=== PATIENT | male | born 1955 | race Caucasian/White ===

== ENCOUNTER 2016-08-02 06:46 | Inpatient (IN) | payer MEDICARE ==
[~2016-08-02] VITALS: Ht 172.7 cm; Wt 95.8 kg
--- NOTE | ~2016-08-02 | DS ---
PATIENT'S NAME: LIUDMILA PARSON [facility] AGE: 60 Y [address] ROOM: [address] [place], [place] [address] LOCATION: GPCU ADMIT DATE: 08/02/2016 Discharge Summary DISCHARGE DATE: 08/05/2016 FAMILY PHYSICIAN: Jj Pandey PA-C ATTENDING PHYSICIAN: Braeden Edwards PRIMARY DISCHARGE DIAGNOSIS: Persistent atrial fibrillation. SECONDARY DIAGNOSES: 1. Chronic systolic congestive heart failure. 2. Long-term anticoagulation with Eliquis. 3. Hypertension. 4. Hypokalemia, corrected. 5. Hypomagnesemia, corrected. 6. Ejection fraction 35%. PROCEDURES: 1. Transesophageal echocardiogram. 2. Direct current cardioversion through an automated implanted cardiac defibrillator. HOSPITAL COURSE: This is a 60-year-old male who was originally seen in [facility] with Dr. Edwards and was found only be 78% pacing through his left ventricle due to his continuous atrial fibrillation. Plan at that time was to proceed with an admission of the patient following a AYSE and direct current cardioversion as well as initiation of Tikosyn. The patient underwent a successful AYSE followed by a direct current cardioversion with 41 joules from his automatic implanted cardiac defibrillator. Please see full dictated report for details. Postprocedure, the patient was transferred to progressive care unit for continued monitoring of EKG and vital signs postprocedure. He was started on Tikosyn 250 mcg p.o. every 12 hours as well as Eliquis 5 mg p.o. twice daily. On 08/03/2016, he was noted to be hypokalemic and was replaced with oral potassium chloride. QTc measurement that morning was 455 msec and he showed decreased premature atrial contractions on his telemetry. On 08/04/2016, the QTc was 501 and his Tikosyn was decreased to 125 mcg p.o. twice daily. Once again, his hypokalemia was replaced with oral KCl and he was started on Aldactone. On 08/05/2016, the patient's QTc measured 482 and had a magnesium level of 1.3, which was replaced with 2 g of IV magnesium and post infusion it was at a level of 2.0. At that time, the patient was found to be in stable condition to be discharged to home. DIAGNOSTICS: Laboratory evaluation during the hospitalization showed an initial potassium level of 3.8, which was at its lowest point of 2.9, and upon discharge, it was 3.4. BUN and creatinine upon admission and discharge were PATIENT'S NAME: LIUDMILA PARSON [facility] AGE: 60 Y [address] ROOM: [place] [address] LOCATION: GPCU ADMIT DATE: 08/02/2016 Discharge Summary DISCHARGE DATE: 08/05/2016 FAMILY PHYSICIAN: Jj Pandey PA-C ATTENDING PHYSICIAN: Braeden Edwards 29 and 1.1 and then 24 and 0.9 respectively. The patient's GFR remained greater than 60 throughout his hospitalization. Full report of his transesophageal echocardiogram, procedure and findings, as well as his direct current cardioversion is available, and the procedure was performed on 08/02/2016 for full review. The patient underwent daily EKG evaluations for Tikosyn safety monitoring and all remained stable post cardioversion with demand pacing noted. DISCHARGE ORDERS: The patient is discharged to home with a diabetic diet and no restrictions to his activity. He is to follow up with his primary care provider, Jj Pandey, in 1 week with a BMP and a magnesium laboratory evaluation. He is then to follow up with Dr. Edwards in 2 weeks. Main focus of his followup with the primary care provider is for evaluation of reasons for hypomagnesemia. DISCHARGE MEDICATIONS: 1. Eliquis 5 mg p.o. twice daily. 2. Coreg 25 mg p.o. twice daily. 3. Tikosyn 125 mcg p.o. twice daily. 4. Lasix 80 mg p.o. daily as needed for shortness of breath. 5. Humalog subcu on a moderate sliding scale before meals and at bedtime. 6. NovoLog 18 units subcu twice daily. 7. Potassium chloride 40 mEq p.o. twice daily. 8. Aldactone 25 mg p.o. daily. 9. Tylenol 650 mg p.o. every 6 hours as needed for pain. DISPOSITION: The patient is discharged to home in stable condition with his . He is given his discharge instructions including diet restrictions as well as followup appointments. He is also given his new medication instructions as well as new prescriptions. AUTUMN CHINCHILLA APRN FOR MD ROSE MARY LARIOS/modl /[id number] d: 08/12/16 0256 t: 08/12/16 0914, DISCHARGE SUMMARY
--- NOTE | ~2016-08-02 | OR ---
PATIENT'S NAME: LIUDMILA PARSON [facility] AGE: 60 Y [address] ROOM: [place] [address] LOCATION: GPCU ADMIT DATE: 08/02/2016 OR/Procedure Report DISCHARGE DATE: FAMILY PHYSICIAN: Jj Pandey PA-C ATTENDING PHYSICIAN: Braeden Edwards SURGEON: Braeden Edwards MD YARD SWITCHER: DATE OF PROCEDURE: 08/02/2016 PROCEDURE PERFORMED: Synchronized cardioversion. INDICATION: The patient has chronic systolic heart failure. He presented to the office complaining of increased dyspnea. He was found to be in atrial fibrillation with rapid ventricular response. His device interrogation showed that the rhythm change had occurred about a month earlier. The patient was admitted with a plan to correct the rhythm because of his worsening heart failure symptoms. Transesophageal echocardiography showed that there were no thrombi in the left atrial appendage or anywhere else in the atria. There was some moderate spontaneous echo in the left atrium. The patient was sedated with propofol and then using his indwelling cardioverter-defibrillator, I delivered a 41-joule synchronized shock that converted his rhythm to atrioventricular pacing with frequent premature atrial contractions. CONCLUSION: Successful cardioversion from atrial fibrillation to sinus rhythm and atrioventricular pacing. The patient will be admitted to introduce dofetilide in an attempt to prevent recurrence of his atrial fibrillation. Thank you for allowing me to participate in the care of your patient. BRAEDEN EDWARDS MD PE/modl /[id number] d: 08/02/16 1143 t: 08/04/16 1551, OPERATIVE SUMMARY
--- NOTE | ~2016-08-02 | ECHO ---
Transesophageal Echocardiography Report (AYSE) Demographics Patient Name LIUDMILA PARSON Date of Study 08/02/2016 Patient Number [id number] Visit Number [id number] Date of 1955 Room Number G6327 Gender Male Number Age 60 year(s) Referring Jj Tiwarilanny Flooring Grader Kelby Danielson Physician Mike Morocho [facility] MD Physician Interpreting Jerry Child Protective Services Specialist Physician Bailee Brandt MD Supervising Ordering Jerry SELLERS/MLP Physician Bailee Brandt MD Nurse Stress Grants Director Conclusions Summary Estimated EF: 35 %. The left atrium is mildly dilated. No left atrial masses including the appendage. Moderate spontaneous echo contrast (''smoke'') in the L atrium. Proceed with cardioversion. Procedure Type of Study AYSE procedure:2D Echocardiogram, Doppler , Color Doppler. Procedure Date Date: 08/02/2016 Start: 10:06 AM Study Location: Inpatient Portable Technical Quality: Good visualization Indications:Atrial fibrillation. Appropriate Use Criteria: 9 Patient Status: Routine HR: 84 bpm AYSE Performed By: the attending and the aluminum siding applicator Type of Anesthesia: General anesthesia Findings Left Ventricle Estimated EF: 35 %. Right Ventricle Mildly dilated right ventricle. Mildly reduced right ventricular function. Left Atrium The left atrium is mildly dilated. No left atrial masses including the appendage. Moderate spontaneous echo contrast (''smoke'') in the L atrium. Right Atrium The right atrium is mildly dilated. Interatrial septum bulges to the left indicating elevated right atrial pressure. Mitral Valve Mild mitral regurgitation. Aortic Valve Normal trileaflet aortic valve. Tricuspid Valve Mild tricuspid regurgitation . Pulmonic Valve Pulmonary valve appears normal. Pericardial Effusion No pericardial effusion. Signature dtt: Braeden Edwards dtd: 08/02/16 1006 Physician Self Edit
[~2016-08-02 06:46] MED LIST: ASPIRIN LO-DOSE81 MG PO; ASPIRIN325 MG PO; BETAPACE80 MG PO; COREG12.5 MG PO; COREG25 MG PO; HUMALOG100 UNIT/1 SUB-Q; JENTADUETO 2.51 EACH PO; K-TAB ER20 MEQ PO; LANOXIN250 MCG PO; LASIX80 M1 PO; NORCO 5-325 MG1 TAB PO; NOVOLIN N100 UNIT/1 SUB-Q; PRINIVIL (ZESTRI5 MG PO; TYLENOL EXTRA500 MG PO; [UNRECOGNIZED DRUG - OTHER] OPHTH
--- NOTE | 2016-08-02 08:21 | NUR ---
Diabetes Consult; Received a phone call from pharmacy regarding the patient's insulin regimen. The patient saw ROGER Howe for two visits in 2014. This CDE worked with the patient during his last admission to the hospital in Jan 2016. Prior to discharge the patient was given a humalog voucher and started on Humalog Moderate Correction. In addition, he was instructed to purchase NPH at [facility] and begin dosing 18 units twice daily.
[2016-08-02 08:44] LABS: HEMATOCRIT 47.1 % (37.0-53.0); HEMOGLOBIN 16.4 g/dL (12.0-17.0); MCHC 34.8 gm/dL (32.0-36.5); MPV 12.7 fl (9.4-12.4); PLATELET COUNT 178 K/uL (150-450); RBC 5.12 M/uL (4.00-6.00); RDW-CV 12.7 % (11.9-14.6); WBC 13.5 K/uL (4.0-11.0)
[2016-08-02 08:52] LABS: ALBUMIN 3.5 gm/dL (3.5-5.0); ALK PHOS 90 IU/L (33-138); ALT 81 IU/L (12-78); ANION GAP 14.8 (10.0-19.0); AST 58 IU/L (10-40); BLOOD UREA NITROGEN 29 mg/dL (6-24); CALCIUM 8.7 mg/dL (8.5-10.5); CHLORIDE 102 mMol/L (96-110); CO2 26 mMol/L (22-32); CPK 162 IU/L (35-332); CREATININE 1.1 mg/dL (0.6-1.3); ESTIMATED GFR (MDRD EQUATION) > 60; MAGNESIUM 1.4 mg/dL (1.3-2.6); POTASSIUM 3.8 mMol/L (3.7-5.1); SODIUM 139 mMol/L (135-145); TOTAL BILIRUBIN 1.5 mg/dL (0.0-1.5); TOTAL PROTEIN 7.3 g/dL (6.0-8.4)
--- NOTE | 2016-08-02 08:56 | NUR ---
Admission Note: Patient states that he had an appointment with Dr. Edwards yesterday in the clinic who then wanted to admit him, but patient refused to be admitted yesterday and came in this A.M. Patient being admitted for acute CHF exacerbation, and Dr. Edwards also plans to due a AYSE with cardioversion this A.M. Patient arrived to PCU at 0735 with VSS: HR 122 (paced rhythm with underlying atrial fibrillation), BP 98/66, RR 16, O2 saturation 94% on room air, and temp 98.1 F. Patient denies pain or shortness of breath. Bowel sounds hypoactive in the right upper and lower quadrants, and patient states he has not had a bowel movement the last couple days and his stomach has been upset. Patient also states he is getting over a cold, and he thinks his stomach is upset due to the nasal drainage. Reports some neuropathy in his bilateral lower legs due to an old back injury. Patient is diabetic, but is inconsistent with his medications and checking blood sugars. Plan for AYSE and cardioversion this A.M. Starting on IV Lasix and Lovenox. Shani SANZ 08/02/16
[2016-08-02 09:56] LABS: BANDED NEUTROPHIL # 0.1 K/uL (0.0-0.1); BANDED NEUTROPHILS % 1 %; LYMPHOCYTE # 5.4 K/uL (0.8-4.0); LYMPHOCYTE % 40 %; MONOCYTE # 0.9 K/uL (0.0-1.0); SEGMENTED NEUTROPHIL # 6.9 K/uL (1.4-9.0); SEGMENTED NEUTROPHIL % 51 %
--- NOTE | 2016-08-02 10:25 | NUR ---
Diabetes consult: Patient is currently off the nursing unit. Will continue to follow and assess educational needs prior to discharge.
--- NOTE | 2016-08-02 11:30 | NUR ---
REPORT CALLED TO [facility] ON PCU
--- NOTE | 2016-08-02 13:04 | NUR ---
Introduced self and role of care management to patient. He lives outside [place] with his and family. He states that he is able to do all his ALD's independently. He states that his can assist if needed. He plans on returning home on discharge. He denies any needs at this time. Will continue to follow.
--- NOTE | 2016-08-02 17:13 | NUR ---
Significant Event: Patient was admitted this morning for acute CHF. A/O x 3. VSS on RA. Had AYSE with cardioversion this A.M. Has remained in paced SR for most of the day but will occasionally have bursts of afib. Asymptomatic. Denies any pain or discomfort. Good UOP with IV Lasix. ACHS accu checks. Follow up: Continue as per plan of care. Monitor heart rhythm. EKG the next 2 mornings.
--- NOTE | 2016-08-03 04:28 | NUR ---
Significant Event:ALERT & ORIENTED. DENIES PAIN. PACED RHYTHM,UNDERLYING A-FIB. TIKOSYN LOAD, STARTED ELIQUIS. UP AD NURA.PT AWAKE MAJORITY OF SHIFT. SISTER AT BEDSIDE. Follow up:CONT TO MONITOR
[2016-08-03 04:42] LABS: ANION GAP 10.3 (10.0-19.0); BLOOD UREA NITROGEN 34 mg/dL (6-24); CALCIUM 8.6 mg/dL (8.5-10.5); CHLORIDE 100 mMol/L (96-110); CO2 32 mMol/L (22-32); CPK 154 IU/L (35-332); ESTIMATED GFR (MDRD EQUATION) > 60; POTASSIUM 3.3 mMol/L (3.7-5.1); SODIUM 139 mMol/L (135-145)
--- NOTE | 2016-08-03 13:34 | NUR ---
Received a call from Kathryn Morales RN with diabetic Ed. She has concerns that patient is not able to afford his medications. I did touch base with patient. He states that he does not have any prescription plans with his Medicare. He "can't afford it". I have reviewed all his medication and they are all generic and most of them are on the $4 list. He states that he gets his med from [facility] and they work with him on the cost. He denies any needs.
--- NOTE | 2016-08-03 15:36 | NUR ---
Significant event: A&Ox3. HR 80-90's, irregular. Afebrile. SBP 90-120's. Up ad-quyen. Denies pain. Follow Up: Continue current POC
--- NOTE | 2016-08-03 16:07 | NUR ---
Diabetes Center note; Patient is seen twice today, first we discuss the importance of obtaining better control of his blood sugars with recent A1C of 12 %. Patient states he is tired of poking himself and states that he can't afford supplies. New meter and strips are provided to patient. Discussed at length the risks of uncontrolled blood sugars, heart, eyes, kidneys and nerves. Notified Care management of concerns with new "blood thinner" also that he is going to be taking, may seek assistance from [facility] for medication assistance program. Message for manager spa to see him today, to assist in guiding him through the process if he qualifies. Patient completed the Diabetes Survival Skills checklist and states understanding what he needs to do, but admits it is difficult to always follow guidelines provided. Encouraged patient to seek assistance from an Internal Medical Doctor, states he is satisfied with [facility] at the [facility].
[2016-08-04 04:17] LABS: ANION GAP 12.9 (10.0-19.0); BLOOD UREA NITROGEN 26 mg/dL (6-24); CALCIUM 8.7 mg/dL (8.5-10.5); CHLORIDE 102 mMol/L (96-110); CO2 31 mMol/L (22-32); CREATININE 0.8 mg/dL (0.6-1.3); ESTIMATED GFR (MDRD EQUATION) > 60; SODIUM 143 mMol/L (135-145)
[2016-08-04 04:18] LABS: POTASSIUM 2.9 mMol/L (3.7-5.1)
--- NOTE | 2016-08-04 04:20 | NUR ---
Significant Event: VSS. PT UP AD NURA. IRREGULAR RHYTHM PER TELE. PT DENIES PAIN OR SOB. PT EAGER TO RETURM HOME. Follow up:CONT WITH PLAN OF CARE
--- NOTE | 2016-08-04 12:10 | NUR ---
Social visit with patient today. We again discussed his medication issues. I have reviewed his med list again and he is now on Eliquis. I did call and speak with Dena at [facility] and she does have a program for Eliquis. I had patient complete the [facility] application form. I also gave him a 30 day free Eliquis card. I also gave him a finalcial assistance for to complete and return. He denies any other needs at this time. Will continue to follow.
--- NOTE | 2016-08-04 13:29 | NUR ---
Patient known to me from prior home monitoring through [place]. Explained purpose of heart healthy education and care transitions. Calendar given, information reviewed, verbalized understanding. Pt reports knowing what he should eat and do isn't the problem, it's compliance.
[2016-08-04 14:21] LABS: ANION GAP 11.4 (10.0-19.0); BLOOD UREA NITROGEN 22 mg/dL (6-24); CALCIUM 8.9 mg/dL (8.5-10.5); CHLORIDE 102 mMol/L (96-110); CO2 33 mMol/L (22-32); CREATININE 0.9 mg/dL (0.6-1.3); ESTIMATED GFR (MDRD EQUATION) > 60; POTASSIUM 3.4 mMol/L (3.7-5.1); SODIUM 143 mMol/L (135-145)
--- NOTE | 2016-08-04 14:21 | NUR ---
Faxed [employer] form, demographics and current MAR to Dena at [facility]. Will fax discharge meds when discharged to home.
--- NOTE | 2016-08-04 16:34 | NUR ---
Significant event: A&Ox3. HR 70-80's. Afebrile. On RA. SBP 110-140's. Denies pain. Educated patient on fluid restriction. Attempts to leave floor at times. Patient had low K+ level this AM 2.9, given 60 MEQ KCL. Rechecked K+ at 1400 it is 3.4, will have another 40 MEQ KCL tonight. Tikosyn dose was also decreased for QTc of 501. Follow Up: Probable discharge in AM.
[2016-08-05 04:19] LABS: ANION GAP 11.4 (10.0-19.0); BLOOD UREA NITROGEN 24 mg/dL (6-24); CALCIUM 8.7 mg/dL (8.5-10.5); CHLORIDE 105 mMol/L (96-110); CO2 30 mMol/L (22-32); CREATININE 0.9 mg/dL (0.6-1.3); ESTIMATED GFR (MDRD EQUATION) > 60; POTASSIUM 3.4 mMol/L (3.7-5.1); SODIUM 143 mMol/L (135-145)
--- NOTE | 2016-08-05 04:19 | NUR ---
Significant Event: PATIENT IS A/O X3. VSS. HR 70-80'S IN PACED RHYTHM. SBP 100-110'S. AFEBRILE. 02 SATS IN LOW 90'S ON RA. NO C/O PAIN. LUNGS CLEAR/DIM THROUGHOUT. PATIENT UP AD NURA IN ROOM. BOWELS ACTIVE. VOIDS PER RESTROOM. SCATTERED SCRATCHES/ECCHYMOSIS. IV TO RIGHT POSTERIOR FOREARM SL. ON 1500ML FLUID RESTRICTION. SEEMS TO BE VERY NON-COMPLIANT WITH IT. PATIENT STATES HE'S ONLY HAD 2 CUPS OF WATER BUT APPEARS TO HAVE MORE. ON ACHS ACCUCHECKS. Follow up: AM LABS. HOME TODAY?
[2016-08-05] MEDS ORDERED: ELIQUIS5 MG PO (08:37)
[2016-08-05] MEDS ORDERED: TIKOSYN125 MCG PO (08:37)
[2016-08-05 10:44] LABS: MAGNESIUM 1.3 mg/dL (1.3-2.6); POTASSIUM 3.8 mMol/L (3.7-5.1)
--- NOTE | 2016-08-05 11:41 | NUR ---
Patient discharging home today, faxed discharge medication orders to Dena [facility] to complete referral for their medication assistance program.
--- NOTE | 2016-08-05 11:46 | NUR ---
Diabetes consult: Patient with fasting blood sugar of 92 this morning. NPH of 18 was held this morning. In reviewing chart, the patient receives NPH at 18 units at 0700 and 1700. Will trend blood sugars and evaluate if dose change is needed.
--- NOTE | 2016-08-05 16:32 | NUR ---
Discharged patient to home, patient taken to private auto via wheelchair, accompained by ASSOCIATE PRODUCT INTEGRITY ENGINEER. Heart failure teacher done. New medication education. Medication compliance education done by RNHarvey APRN, and Dr. Fields. Discharge instructions given, as well as follow up appointments and importance of keeping follow-up appointments. Patient remained passive during teaching, but verbalized understanding.
== END 2016-08-05 15:15 | disposition disaster alternative care site (69) | DRG 309 ==
LOC: GPCU 06:46 → GOPP 08:00 → EDSTATUS 08:00 → GPCU 08-05 15:15
PROVIDERS: Internal Medicine Interventional Cardiology; ADMIT Internal Medicine Cardiovascular Disease
PROC: 5A2204Z Restoration of Cardiac Rhythm, Single (ICD-10-PCS; principal; 2016-08-02)
PROC: B246ZZ4 Ultrasonography of Right and Left Heart, Transesophageal (ICD-10-PCS; 2016-08-02)
DX: I48.1 Persistent atrial fibrillation (principal); I50.22 Chronic systolic (congestive) heart failure; I11.0 Hypertensive heart disease with heart failure; E78.5 Hyperlipidemia, unspecified; F17.290 Nicotine dependence, other tobacco product, uncomplicated; Z79.01 Long term (current) use of anticoagulants; E87.6 Hypokalemia; E83.42 Hypomagnesemia; Z95.810 Presence of automatic (implantable) cardiac defibrillator; E11.9 Type 2 diabetes mellitus without complications; Z79.4 Long term (current) use of insulin
CPT/HCPCS: J1650; J1940; J3475; J7030; J7050

== ENCOUNTER → 2016-08-08 | Outpatient (CLI) | payer MEDICARE ==
[~2016-08-08] MED LIST changes: +CARDIZEM CD (T120 MG PO; +ELIQUIS5 MG PO; +IBUPROFEN800 MG PO; +JARDIANCE10 MG PO; +MAG-OX-400(241400 MG PO; +TIKOSYN125 MCG PO
[2016-08-08 16:54] LABS: ANION GAP 16.1 (10.0-19.0); BLOOD UREA NITROGEN 28 mg/dL (6-24); CALCIUM 9.5 mg/dL (8.5-10.5); CHLORIDE 108 mMol/L (96-110); CO2 23 mMol/L (22-32); CREATININE 0.9 mg/dL (0.6-1.3); ESTIMATED GFR (MDRD EQUATION) > 60; POTASSIUM 4.1 mMol/L (3.7-5.1); SODIUM 143 mMol/L (135-145)
[2016-08-08 16:59] LABS: MAGNESIUM 1.1 mg/dL (1.3-2.6)
== END | disposition disaster alternative care site (69) ==
LOC: LNHI 16:34
PROVIDERS: Nurse Practitioner
DX: I50.22 Chronic systolic (congestive) heart failure (principal); I48.1 Persistent atrial fibrillation; I42.9 Cardiomyopathy, unspecified

== ENCOUNTER → 2016-08-19 | Outpatient (CLI) | payer MEDICARE ==
[2016-08-19 16:38] LABS: ANION GAP 11.4 (10.0-19.0); BLOOD UREA NITROGEN 19 mg/dL (6-24); CALCIUM 8.5 mg/dL (8.5-10.5); CHLORIDE 102 mMol/L (96-110); CO2 29 mMol/L (22-32); CREATININE 0.8 mg/dL (0.6-1.3); ESTIMATED GFR (MDRD EQUATION) > 60; MAGNESIUM 1.5 mg/dL (1.3-2.6); POTASSIUM 3.4 mMol/L (3.7-5.1); SODIUM 139 mMol/L (135-145)
== END | disposition disaster alternative care site (69) ==
LOC: LNHI 16:15
PROVIDERS: Internal Medicine Cardiovascular Disease
DX: I48.1 Persistent atrial fibrillation (principal)

== ENCOUNTER 2016-09-11 21:17 | Inpatient (IN) | payer MEDICARE ==
[~2016-09-11] VITALS: Ht 172.7 cm; Wt 99.7 kg
--- NOTE | ~2016-09-11 | ER ---
PATIENT'S NAME: LIUDMILA PARSON [facility] AGE: 60 Y [address] ROOM: [place] [address] LOCATION: GICU ADMIT DATE: 09/11/2016 ER/Outpatient Report DISCHARGE DATE: FAMILY PHYSICIAN: PHYSICIAN, NO ATTENDING PHYSICIAN: Chanelle Bhatia Time of Arrival: 2117 hours. Time of Evaluation: 2117 hours. IDENTIFICATION: A 60-year-old male. CHIEF COMPLAINT: Defibrillator activation. 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 He is at the [place] playing [employer], drinking a few beers when he noted his AICD discharged x2 while sitting there, so he got nervous and then it fired again an additional 2 times. On arrival here to the emergency room, he is tachycardic. Denies any chest pain. No shortness of breath, but diaphoretic and anxious. PAST MEDICAL HISTORY: ALLERGIES: PENICILLIN. CURRENT MEDICATIONS: He did not bring them with him, but he was recently here in the hospital in July for cardioversion, and he says they have not changed since that time. 1. Furosemide 80 mg daily. 2. KCl 40 mEq b.i.d. 3. Acetaminophen 650 mg q.6 hours p.r.n. 4. Carvedilol 25 mg b.i.d. 5. Insulin Humalog sliding scale before meals and at bedtime. 6. Novolin N 18 units subcu b.i.d. 7. Eliquis 5 mg b.i.d. 8. Tikosyn 125 mcg b.i.d. The patient states that he did not take any of his medications today. 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 ROOM: [address] [address] LOCATION: GICU ADMIT DATE: 09/11/2016 ER/Outpatient Report DISCHARGE DATE: FAMILY PHYSICIAN: PHYSICIAN, NO ATTENDING PHYSICIAN: Chanelle Bhatia hepatitis C; paroxysmal atrial fibrillation; dyslipidemia; and peripheral neuropathy. The patient has a history of atrial fibrillation as well. PRIOR SURGERIES: Back surgery, knee surgery, elbow, thumb, wrist, gallbladder, and tonsillectomy. SOCIAL HISTORY: The patient lives in [place]. He is . Tobacco use: Occasional cigar. He smoked for 20 years. Alcohol use, 6 beers today. Drug use, denies. FAMILY HISTORY: Father secondary to kidney disease and heart disease, on hemodialysis. Mother, history of throat cancer. Brother with history of hepatitis and a sister with a history of asthma. REVIEW OF SYSTEMS: All systems reviewed and negative other than what is noted in the HPI. PHYSICAL EXAMINATION: VITAL SIGNS: Weight 95 kg. Blood pressure 164/120, pulse 178, respirations 22, temperature 97.6, and saturations 96%. GENERAL: A 60-year-old male, somewhat diaphoretic, but otherwise in no acute distress with no pain. HEENT: Head: Normocephalic, atraumatic. Eyes: Pupils equal and reactive to light and accommodation. Extraocular movements intact. Nose: Mucosa pink. No lesions. Mouth: No lesions. Pharynx benign. NECK: Supple. No lymphadenopathy. LUNGS: Clear to auscultation. HEART: Regular, tachycardia. No murmur, rub, or gallop. ABDOMEN: Bowel sounds present. Protuberant. Soft. Nondistended. Nontender. SKIN: Elton, warm, and dry. No lesions or rashes noted. NEURO: The patient is alert and oriented x4. Cranial nerves 2 through 12 grossly intact. Motor strength 5/5 throughout. Sensation is intact to light touch. Trace of lower extremity edema. No calf tenderness. EMERGENCY DEPARTMENT COURSE: An IV was initiated. The patient was placed on a monitoring tech. EKG was obtained showing wide-complex tachycardia consistent with ventricular tachycardia, 179 beats per minute. While the IV was being initiated, Dr. Bhatia, silk spooler, was consulted. He recommended Lopressor 1 mg IV over 3 minutes, and he would be present to evaluate him in the emergency room, and magnesium sulfate 2 g IV was also given. Hemoglobin 21.3; hematocrit 60.6; platelets 207; white count 20.6, 60% segs, 32% lymphocytes. INR 0.95. PATIENT'S NAME: LIUDMILA PARSON [facility] AGE: 60 Y [address] ROOM: [facility] [place] [place], [place] [address] LOCATION: [facility] ADMIT DATE: 09/11/2016 ER/Outpatient Report DISCHARGE DATE: FAMILY PHYSICIAN: PHYSICIAN, NO ATTENDING PHYSICIAN: Chanelle Bhatia Sodium 136, potassium 3.1, chloride 98, CO2 of 25, BUN 18, creatinine 1.2, blood sugar 221. Liver enzymes elevated with AST 88 and ALT 156, those are elevated compared to August 02. Magnesium 1.6. CPK 129, CK-MB elevated at 3.8. Troponin I less than 0.040. ProBNP 3955, which is elevated compared to 2147 on August 02. One-view chest x-ray: Cardiomegaly. ICD is present. No acute infiltrate. Pending Radiology over-read. IMPRESSION AND PLAN: 1. Ventricular tachycardia and his ICD fired 4 times in a row. 2. Nonischemic dilated cardiomyopathy, ejection fraction 35%. 3. Hypokalemia, potassium 3.1. 4. Hypomagnesemia. 5. Diabetes mellitus, insulin requiring. 6. Congestive heart failure. 7. Hepatitis C. 8. Osteoarthritis. ICD rep was contacted who presented to the ER to interrogate his ICD. Dr. Bhatia presented to the ER and evaluated the patient and planned for admission to the ICU. The patient arrived to the emergency room at 2117 hours, went to ICU at 0001 hours. Thirty minutes of critical care time was provided with this patient. ALFREDO MORAES MD CAR/modl /[id number] d: 09/12/16623 t: 09/19/16 1838, OUTPATIENT REPORT
--- NOTE | ~2016-09-11 | HP ---
PATIENT'S NAME: LIUDMILA PARSON [facility] AGE: 60 Y [address] ROOM: [id number] [place], [place] [address] LOCATION: [facility] ADMIT DATE: 09/11/2016 History & Physical DISCHARGE DATE: FAMILY PHYSICIAN: PHYSICIAN, NO ATTENDING PHYSICIAN: Chanelle Bhatia DATE OF SERVICE: Patient of Dr. Edwards. Mr. Parson is a 60-year-old male patient, who came to the emergency room in his own vehicle with atrial fibrillation with rapid ventricular response. He has a history of nonischemic dilated cardiomyopathy, status post BiV-ICD placement with an ejection fraction of 35%. He has a history of being noncompliant and heavy alcohol use, which he continues. Today, he was doing different things and has had almost 7 beers and was getting into his car according to him when he had 4 shocks in a row. He came to the emergency room, and he did not have any symptoms of chest pains or shortness of breath. He denied lightheadedness, dizziness, syncope, palpitations, or any new symptoms since he had the shock. He was somewhat sweaty and was very anxious though. The patient seems to be not in any regular exercise program. He has not had much of chest pains or shortness of breath with usual activities. He currently seems to be in functional class II to III with no paroxysmal nocturnal dyspnea or orthopnea. There is no history of syncope or ankle swelling. The patient had about a month ago a transesophageal echocardiogram followed by cardioversion by Dr. Edwards, at which time, he went on apixaban 5 mg b.i.d. He states he has been taking his medications including his Tikosyn 125 mcg. Today, he has not taken any of his medications, but he took all of them yesterday. The patient has no history of hypertension. He is diabetic. His cholesterol is known to be elevated, and he has family history of congestive heart failure. There is no history of tobacco abuse. There is no prior history of [place] or angina or nitroglycerin use. He was told by Dr. Allen that his weak heart muscle is from "virus." He denies rheumatic fever, heart murmur, heart failure, dilated or enlarged heart or any diagnosed enlarged heart. He has atrial fibrillation diagnosed before. MEDICATIONS: His current list of medications are: 1. Lasix 80 mg once a day. PATIENT'S NAME: LIUDMILA PARSON [facility] AGE: 60 Y [address] ROOM: [place] [address] LOCATION: [facility] ADMIT DATE: 09/11/2016 History & Physical DISCHARGE DATE: FAMILY PHYSICIAN: PHYSICIAN, NO ATTENDING PHYSICIAN: Chanelle Bhatia 2. Potassium chloride 40 mEq twice a day. 3. Acetaminophen. 4. Carvedilol 25 mg twice a day. 5. Insulin. 6. Apixaban 5 mg twice a day. 7. Dofetilide 125 mcg twice a day. ALLERGIES: PENICILLIN. PAST MEDICAL AND SURGICAL HISTORY: 1. Right knee scope. 2. Right knee surgery. 3. Right thumb surgery. 4. Left elbow surgery. 5. T11 to T12 fusion. 6. Right rotator cuff tear. 7. Hepatitis C. SOCIAL HISTORY: The patient is . He is disabled from his heart. He does not use any recreational drugs, but he still seems to be drinking fair amount even though he admits to only drinking 6 pack once or twice a week at the most. His appetite has been good, but he has lost about 15 pounds intentionally over the last 3 months. His sleep has been poor because lately he has been noticing some joint pains. FAMILY HISTORY: Congestive heart failure. REVIEW OF SYSTEMS: A 12-point review of systems reveals: 1. A lot of joint pains that has been going on since he started taking his new medications, so he states that he stopped taking the medication because of that. 2. Cholecystectomy. 3. Kidney stones. PHYSICAL EXAMINATION: VITAL SIGNS: On examination, his blood pressure is 150/80, heart rate is in the 160s after he received some Lopressor IV and also magnesium IV, respiration is 18, and oxygen saturation is satisfactory on 2 L. HEENT: Normal. NECK: Supple with no JVD, thyromegaly, lymphadenopathy, or carotid bruit. PMI is not well located. First and second heart sounds are irregular and PATIENT'S NAME: LIUDMILA PARSON [facility] AGE: 60 Y [address] ROOM: [place] [address] LOCATION: [facility] ADMIT DATE: 09/11/2016 History & Physical DISCHARGE DATE: FAMILY PHYSICIAN: PHYSICIAN, NO ATTENDING PHYSICIAN: Chanelle Bhatia. CHEST: Clear to auscultation. ABDOMEN: Obese, soft. EXTREMITIES: Reveal no edema. CENTRAL NERVOUS SYSTEM: Intact. ASSESSMENT: A 60-year-old male patient with a nonischemic dilated cardiomyopathy with an ejection fraction of 35%, status post BiV-ICD placement, which fired 4 times in a row. His potassium today is 3.1, and his magnesium is low as well at about 1.7 or so. The patient is noncompliant with his medications. He is noncompliant because of use of excessive alcohol also. His white count is elevated at 20,000, and I will have a hospitalist see him because of that as well as his hemoglobin is elevated at 21 g. I did try to cardiovert him internally after interrogating his ICD, which confirmed that he was in atrial fibrillation with rapid ventricular response. He went into sinus rhythm, but he went back out right away. RECOMMENDATIONS: At this point, we will admit him to ICU. We will have him replace his magnesium and potassium and put him on some Brevibloc overnight and have the hospitalist see him regarding his diabetes, elevated white count, as well as his elevated hemoglobin. Dr. Edwards will assume care in the morning. MD LUCIA MCADAMS/robin /[id number] D: [id number] T: [id number] HISTORY & PHYSICAL
--- NOTE | ~2016-09-11 | DS ---
PATIENT'S NAME: LIUDMILA PARSON [facility] AGE: 60 Y [address] ROOM: [id number] [place], [place] [address] LOCATION: GPCU ADMIT DATE: 09/11/2016 Discharge Summary DISCHARGE DATE: 09/14/2016 FAMILY PHYSICIAN: , SARAH ATTENDING PHYSICIAN: Chanelle Bhatia PRIMARY DISCHARGE DIAGNOSIS: Recurrent atrial fibrillation. SECONDARY DISCHARGE DIAGNOSES: 1. Chronic systolic congestive heart failure. 2. Nonischemic cardiomyopathy. 3. Alcohol abuse. 4. Mild leukocytosis. 5. Nonsustained ventricular tachycardia. PROCEDURES: Direct current cardioversion through ICD. HOSPITAL COURSE: This is a 60-year-old male, who presented to the emergency department with complaints of atrial fibrillation with RVR. He has a previous noted history of medication noncompliance as well as heavy alcohol abuse. Prior to admission, he was drinking alcohol and while leaving the establishment, experienced four shocks from his ICD. Initial evaluation in the ER, he admitted to following medications as prescribed. Later interview, he did admit to stopping his Tikosyn, which he was previously discharged on. Please see history and physical for full details of admission. Once admitted to the intensive care unit with atrial fibrillation with RVR, he did undergo one direct current cardioversion by Dr. Bhatia through his ICD device. The patient did convert to a sinus rhythm for a very short amount of time and subsequently converted back to an atrial fibrillation with rapid ventricular response. Due to the tachycardia, he was started on esmolol drip for further rate control. Hospitalist service was consulted for medication management. On 09/12/2016, the patient was restarted on Tikosyn and had an initial QTc evaluation of 432. His urine drug screen was positive for methamphetamines. He also showed a leukocytosis with a white blood cell count of 18 and his procalcitonin was 0.11. His beta-flor dose was increased and he was given one dose of IV digoxin to assist with rate control. On 09/13/2016, he continued an atrial fibrillation with rapid ventricular response. His QTc at that time was 423 and his Tikosyn was increased to 250 mcg p.o. twice daily. He was also started on oral Cardizem every 6 hours. He was made n.p.o. overnight for a possible repeat direct current cardioversion in the a.m. On 09/14/2016, the patient had self converted to a sinus rhythm overnight and had a QTc level of 467. There was no need to repeat a direct cardioversion due to the attainment of sinus rhythm and he was found to be in stable condition to be discharged to home. PATIENT'S NAME: LIUDMILA PARSON [facility] AGE: 60 Y [address] ROOM: [place] [address] LOCATION: GPCU ADMIT DATE: 09/11/2016 Discharge Summary DISCHARGE DATE: 09/14/2016 FAMILY PHYSICIAN: PHYSICIAN, NO ATTENDING PHYSICIAN: Chanelle Bhatia DIAGNOSTICS: The patient's white blood cell count upon admission, and subsequently at discharge were 20.6, followed by 9.4 respectively. Renal evaluation upon admission showed a potassium of evaluation of 3.1 BUN and creatinine of 18 and 1.2 respectively and a GFR of greater than 60. Upon discharge, his potassium was 4.0, BUN and creatinine were 16 and 0.7 respectively and a GFR remained greater than 60. He did have a TSH level of 1.37 as well as a cardiac enzyme evaluation which showed a CPK of 129, CK-MB of 3.8, and troponin I of less than 0.04. He did have a proBNP of 3955. The patient underwent a chest x-ray evaluation on 09/11 and 09/12 both of which showed no evidence of acute cardiopulmonary disease. DISCHARGE ORDERS: The patient is discharged to home with a cardiac diet of low fat, low salt, and low cholesterol. He is to follow up with his primary care provider, Jj Motnes PA-C in 1 week and then is to follow up with Dr. Edwards in 2 weeks. He is to avoid all use of alcohol and to take medications as prescribed. DISCHARGE MEDICATIONS: 1. Eliquis 5 mg p.o. twice daily. 2. Coreg 12.5 mg p.o. twice daily with meals. 3. Tikosyn 250 mcg p.o. twice daily. 4. Magnesium oxide 400 mg p.o. twice daily. 5. Lasix 40 mg p.o. daily as needed for swelling. 6. Potassium chloride 20 mEq p.o. twice daily. 7. Tylenol 500 mg 1-2 tabs every 6 hours as needed for pain. 8. Jardiance 10 mg p.o. every 12 hours. 9. Cardizem CD 120 mg p.o. daily. 10. Ibuprofen 800 mg p.o. 3 times daily every 8 hours as needed for joint pain. DISPOSITION: The patient is discharged to home in stable condition. He is given discharge teaching about his medication changes as well as new prescriptions. He is educated by his followup appointments and importance of keeping those as well as abstaining from alcohol and obtaining close primary care provider management of anxiety and depression. AUTUMN CHINCHILLA APRN FOR LEANN-MD ROSE MARY SALGUERO/roibn /[id number] d: 09/18/16 0303 t: 09/30/16 0839, DISCHARGE SUMMARY
--- NOTE | ~2016-09-11 | CON ---
PATIENT'S NAME: LIUDMILA PARSON [facility] AGE: 60 Y [address] ROOM: [place] [id number] LOCATION: GICU ADMIT DATE: 09/11/2016 Consultation DISCHARGE DATE: FAMILY PHYSICIAN: PHYSICIAN, NO ATTENDING PHYSICIAN: Chanelle Bhatia DATE OF CONSULTATION: 09/12/2016 REFERRING PHYSICIAN: MARLA LINDER MD CONSULTING PHYSICIAN: Dr. Linder. REASON FOR CONSULTATION: Management of diabetes and evaluation of polycythemia/leukocytosis. HISTORY OF PRESENT ILLNESS: The patient is a 60-year-old male with a past medical history most significant for nonischemic cardiomyopathy, atrial fibrillation, on anticoagulation, status post biventricular AICD. The patient's endorses chronic noncompliance with his therapies. The patient developed supraventricular tachycardia while out drinking tonight. His AICD shocked him several times, but that did not break his rhythm. Eventually, the patient rhythm was controlled with esmolol and he is currently in the Intensive Care Unit on the esmolol drip. The patient was recently started on Tikosyn, but self-discontinued, and did not have a followup appointment several weeks ago. His endorses noncompliance with other medicines. Subsequent to admission to the ICU, a consultation was requested as the patient is diabetic and is on sitagliptin as well as for evaluation of leukocytosis and polycythemia. At this point, the patient denies any chest pain, shortness of breath, nausea, vomiting, diarrhea, or palpitations. REVIEW OF SYSTEMS: All systems have been reviewed and are negative aside from pertinent positives mentioned above. PAST MEDICAL HISTORY: 1. Hepatitis C, not well-followed. 2. Crx-acvgsbz-angfdqdsd diabetes. 3. Nonischemic cardiomyopathy. 4. Atrial fibrillation, on long-term anticoagulation. PATIENT'S NAME: LIUDMILA PARSON [facility] AGE: 60 Y [address] ROOM: [address] [address] LOCATION: GICU ADMIT DATE: 09/11/2016 Consultation DISCHARGE DATE: FAMILY PHYSICIAN: PHYSICIAN, NO ATTENDING PHYSICIAN: Chanelle Bhatia CURRENT MEDICATIONS: 1. Tikosyn. 2. Sitagliptin. 3. Coreg. 4. Potassium and magnesium supplements. SOCIAL HISTORY: The patient endorses going out several times a week and drinking 6-7 beers. I suspect that maybe he is underestimating. He also has been a lifelong smoker and still consumes some sort of a tobacco product, which I am not familiar with. Denies any drug use. FAMILY HISTORY: Reviewed and is noncontributory due to known underlying etiology for the patient's presentation. PHYSICAL EXAMINATION: VITAL SIGNS: At this point, blood pressure 100/49, heart rate is in the 110s to 120s and irregular, satting 92% on room air, afebrile, and respirations 16. GENERAL: Appears as an obese, middle-aged male, in no acute distress. NEUROLOGICAL: Exam is nonfocal. EYES: Exam shows pupils are equal and reactive to light. LYMPHATIC: Exam shows no cervical lymphadenopathy. ENDOCRINE: Exam shows no thyromegaly. LUNGS: Exhibit scattered crackles at bases bilaterally. HEART: Rate is irregularly irregular with 2/6 systolic murmur. GI: Abdomen is soft, nontender, nondistended. : No costovertebral angle tenderness. VASCULAR: A 2+ pedal pulses. SKIN: Warm and dry. MUSCULOSKELETAL: No significant muscle or joint abnormalities. PSYCHIATRIC: Exam shows quite an agitated gentleman with preserved cognition and mood. LABORATORY DATA: Review of studies is significant for a potassium of 3.1, glucose of 221, and magnesium of 1.6. Two negative sets of cardiac enzymes, pro-BNP of 4000, which is above his baseline. White count is 20.6, hemoglobin is 21.3, platelets are 207, band percentage is 1. IMPRESSION AND RECOMMENDATIONS: This is a 60-year-old male admitted with atrial fibrillation with rapid ventricular response. Individual problems to be addressed by the Hospitalist Service are: PATIENT'S NAME: LIUDMILA PARSON [facility] AGE: 60 Y [address] ROOM: [place] [address] LOCATION: [facility] ADMIT DATE: 09/11/2016 Consultation DISCHARGE DATE: FAMILY PHYSICIAN: PHYSICIAN, NO ATTENDING PHYSICIAN: Chanelle Bhatia 1. Hsf-aegzbmq-wdvlyipes diabetes. We will restart his sitagliptin. At this point, we will just check his Accu-Cheks on this medicine. Given the patient's noncompliance, I would like to avoid starting him on insulin or additional agents. 2. Leukocytosis. I think this is likely reactive to his stress episode as the patient was shocked at least 3 times to the best of my understanding. We will recheck his white count, chest x-ray does not show any infiltrates, and we will follow up the urine specimen. At this point, I doubt any acute infection as his bands are 0.1%. 3. Polycythemia. This is quite surprising as the patient has not had elevated hemoglobins in the past. I think at this point we will just repeat a CBC in the morning and pursue his polycythemia if his RBC counts remain elevated. 4. Hepatitis C. The patient is supposed to be following regularly, but unfortunately he is not, his LFTs look at baseline. 5. Long-term use of anticoagulation as per Cardiology. Additional management will depend on clinical course. We will follow the patient with you. Thank you for allowing us to participate in the care of this gentleman. Time dedicated to this patient encounter is 35 minutes. MD JARRETT CASTORENA/robin /[id number] d: 09/12/16 0245 t: 09/23/16 0801, CONSULTATION REPORT
--- NOTE | ~2016-09-11 | OR ---
PATIENT'S NAME: LIUDMILA PARSON [facility] AGE: 60 Y [address] ROOM: [place] [address] LOCATION: GICU ADMIT DATE: 09/11/2016 OR/Procedure Report DISCHARGE DATE: FAMILY PHYSICIAN: PHYSICIAN, NO ATTENDING PHYSICIAN: Chanelle Bhatia SURGEON: Chanelle Bhatia MD INTERNAL AUDIT DIRECTOR: DATE OF PROCEDURE: 09/11/2016 PROCEDURE PERFORMED: Cardioversion DESCRIPTION OF PROCEDURE: The patient is in atrial fibrillation with rapid ventricular response. The pacemaker rep was called in. He had him interrogate the pacemaker which showed that he is in atrial fibrillation with rapid ventricular response. A 41-joule shock was delivered internally with the patient sedated using propofol with the help of Anesthesiology. He went briefly into regular sinus rhythm and went back into atrial fibrillation. IMPRESSION: Unsuccessful cardioversion of his atrial fibrillation at this time. MD LUCIA MCADAMS/robin /[id number] d: 09/12/16 0133 t: 09/13/16 1455, OPERATIVE SUMMARY
[~2016-09-11 21:17] MED LIST changes: -CARDIZEM CD (T120 MG PO; -IBUPROFEN800 MG PO; -JARDIANCE10 MG PO; -MAG-OX-400(241400 MG PO
[2016-09-11 21:35] LABS: HEMOGLOBIN 21.3 g/dL (12.0-17.0); MCHC 35.1 gm/dL (32.0-36.5); MCV 90.3 fl (83.0-98.0); MPV 11.6 fl (9.4-12.4); PLATELET COUNT 207 K/uL (150-450); RDW-CV 12.6 % (11.9-14.6)
[2016-09-11 21:38] LABS: HEMATOCRIT 60.6 % (37.0-53.0); MCH 31.7 pg (27.0-34.0); RBC 6.71 M/uL (4.00-6.00); WBC 20.6 K/uL (4.0-11.0)
[2016-09-11 21:43] LABS: INR - (THERAPEUTIC) 0.95 (0.92-1.07); PTT 28 SECONDS (25-32)
[2016-09-11 21:50] LABS: ALBUMIN 4.3 gm/dL (3.5-5.0); ALK PHOS 145 IU/L (33-138); ALT 156 IU/L (12-78); ANION GAP 16.1 (10.0-19.0); AST 88 IU/L (10-40); BLOOD UREA NITROGEN 18 mg/dL (6-24); CALCIUM 9.7 mg/dL (8.5-10.5); CHLORIDE 98 mMol/L (96-110); CO2 25 mMol/L (22-32); CPK 129 IU/L (35-332); CREATININE 1.2 mg/dL (0.6-1.3); ESTIMATED GFR (MDRD EQUATION) > 60; MAGNESIUM 1.6 mg/dL (1.8-2.6); POTASSIUM 3.1 mMol/L (3.7-5.1); SODIUM 136 mMol/L (135-145)
[2016-09-11 21:51] LABS: TOTAL BILIRUBIN 0.9 mg/dL (0.0-1.5); TOTAL PROTEIN 9.5 g/dL (6.0-8.4)
[2016-09-11 22:04] LABS: ABSOLUTE NEUTROPHIL CT (ANC) 12.4 K/uL (1.4-9.0); LYMPHOCYTE # 6.6 K/uL (0.8-4.0); LYMPHOCYTE % 32 %; MONOCYTE # 1.6 K/uL (0.0-1.0); SEGMENTED NEUTROPHIL # 12.4 K/uL (1.4-9.0); SEGMENTED NEUTROPHIL % 60 %
--- NOTE | 2016-09-12 04:19 | NUR ---
Significant Event: Pt having drinks at [employer] this evening when pt was shocked by AICD x2, and then a third time in parking lot. On arrival to ER HR's >200. Pt was cardioverted in ER with AICD, only in SR for brief time. Pt then started on Brevibloc gtt and brought to ICU. Transferred to ICU without complications. Brevibloc has been maxed at 200mcg/kg/min. Pt heart rates continues 120's-140s. X1 dose of Coreg given po. Camp Manager notified of continued elevated heart rates. No orders received, cont to monitor, pt will be seen by this am. Pt is NPO. Follow up: 2 view CXR this am.
[2016-09-12 05:44] LABS: HEMATOCRIT 55.9 % (37.0-53.0); HEMOGLOBIN 19.5 g/dL (12.0-17.0); MCH 31.8 pg (27.0-34.0); MCHC 34.9 gm/dL (32.0-36.5); MCV 91.2 fl (83.0-98.0); MPV 11.4 fl (9.4-12.4); PLATELET COUNT 178 K/uL (150-450); RBC 6.13 M/uL (4.00-6.00); RDW-CV 12.2 % (11.9-14.6); WBC 18.3 K/uL (4.0-11.0)
[2016-09-12 06:06] LABS: ANION GAP 12.3 (10.0-19.0); BLOOD UREA NITROGEN 19 mg/dL (6-24); CALCIUM 8.9 mg/dL (8.5-10.5); CHLORIDE 101 mMol/L (96-110); CO2 27 mMol/L (22-32); CREATININE 1.1 mg/dL (0.6-1.3); ESTIMATED GFR (MDRD EQUATION) > 60; SODIUM 136 mMol/L (135-145)
[2016-09-12 06:15] LABS: ABSOLUTE NEUTROPHIL CT (ANC) 11.2 K/uL (1.4-9.0); BANDED NEUTROPHIL # 0.9 K/uL (0.0-0.1); BANDED NEUTROPHILS % 5 %; LYMPHOCYTE # 6.4 K/uL (0.8-4.0); LYMPHOCYTE % 35 %; MONOCYTE # 0.5 K/uL (0.0-1.0); SEGMENTED NEUTROPHIL # 10.3 K/uL (1.4-9.0); SEGMENTED NEUTROPHIL % 56 %
[2016-09-12 06:18] LABS: POTASSIUM 4.3 mMol/L (3.7-5.1)
[2016-09-12 07:35] LABS: BILIRUBIN URINE NEGATIVE (NEGATIVE); BLOOD URINE NEGATIVE /UL (NEGATIVE); GLUCOSE URINE 1000 mg/dL (NEGATIVE); KETONE URINE NEGATIVE (NEGATIVE); LEUKOCYTES URINE NEGATIVE /UL (NEGATIVE); NITRITE URINE NEGATIVE (NEGATIVE); PROTEIN URINE 30 mg/dL (NEGATIVE); UROBILINOGEN URINE NORMAL (NORMAL)
[2016-09-12 07:36] LABS: COLOR URINE YELLOW (YELLOW); TURBIDITY URINE CLEAR (CLEAR)
[2016-09-12 08:00] LABS: BACTERIA URINE RARE (NEGATIVE); EPITHELIAL URINE NEGATIVE #/HPF (NEGATIVE); MUCUS URINE 1+ (NEGATIVE); RBC URINE NEGATIVE #/HPF (NEGATIVE); SPERM URINE 0-2 #/HPF (NEGATIVE); WBC URINE RARE #/HPF (NEGATIVE)
[2016-09-12 08:01] LABS: AMPHETAMINE POSITIVE (NEGATIVE); BARBITURATE NEGATIVE (NEGATIVE); COCAINE NEGATIVE (NEGATIVE); OPIATES NEGATIVE (NEGATIVE)
[2016-09-12] MEDS ORDERED: MAG-OX-400(241400 MG PO (09:02)
[2016-09-12] MEDS ORDERED: JARDIANCE10 MG PO (09:02)
--- NOTE | 2016-09-12 09:54 | NUR ---
(-)MST; NO SIG. WT LOSS. WILL ASSIST NEEDED.
--- NOTE | 2016-09-12 13:03 | NUR ---
Introduced self and role of care management to patient. He is familiar with me from his last visit. He lives in [place] with his and family. He states that he is able to do all his own ADL's. He does occasionally use a cane. He states that his is able to assist as needed. We did discuss why he quit taking his Tikosyn. He states that he was started on a low dose of Tikosyn and then it was doubled and he was suppose to go see Dr Edwards last Monday and if he was still in Afib he would do another cardioversion. He states that he got up in a grumpy mood that day and just decide he was not in the mood to be shocked again. He states that when he was started on the Tikosyn he was also started on a new diabetic med. He states that he had such muscle aches that he decided to quit taking the Tikosyn. He states that he is very compliant with all his other medication. He did state that he understands that the only one he hurt by stopping his Tikosyn is himself. I had helped him enroll in the [facility]ication access program during his last vist. He did state that he is tam [place] with his Eliquis thru [employer]. He plans on returning home on discharge. He denies any needs at this time. Will continue to follow.
--- NOTE | 2016-09-12 16:11 | NUR ---
Significant Event: Patient alert/oriented x3. NO c/o pain/discomfort. RA. Patient weaning off esmolol gtt. Currently at 50mcg/kg/min. Patient HR being controlled by tikosin, digoxin, cardizem, and esmolol. Patient feels fine, but refuses to get up and move around until his HR is in the 70's. LR infusing at 125ml/hr. Voids per urinal, marignal UOP. Follow up:
[2016-09-13 05:09] LABS: BASOPHIL # 0.1 K/uL (0.0-0.2); BASOPHIL % 0.9 %; EOSINOPHIL # 0.3 K/uL (0.0-0.5); EOSINOPHIL % 2.4 %; HEMATOCRIT 50.2 % (37.0-53.0); HEMOGLOBIN 17.2 g/dL (12.0-17.0); IMMATURE GRANULOCYTE % 0.3 %; LYMPHOCYTE % 39.7 %; MCHC 34.3 gm/dL (32.0-36.5); MCV 93.3 fl (83.0-98.0); MONOCYTE # 0.9 K/uL (0.0-1.0); MONOCYTE % 7.2 %; MPV 11.5 fl (9.4-12.4); NEUTROPHIL # (ANC) 6.3 K/uL (1.4-9.0); NEUTROPHIL % 49.5 %; NRBC % 0 /100WBC (0-0.00); PLATELET COUNT 147 K/uL (150-450); RBC 5.38 M/uL (4.00-6.00); RDW-CV 12.4 % (11.9-14.6); WBC 12.7 K/uL (4.0-11.0)
[2016-09-13 05:23] LABS: ANION GAP 11.5 (10.0-19.0); BLOOD UREA NITROGEN 20 mg/dL (6-24); CHLORIDE 106 mMol/L (96-110); CO2 25 mMol/L (22-32); CREATININE 0.8 mg/dL (0.6-1.3); ESTIMATED GFR (MDRD EQUATION) > 60; POTASSIUM 4.5 mMol/L (3.7-5.1); SODIUM 138 mMol/L (135-145)
[2016-09-13 05:25] LABS: ALBUMIN 3.1 gm/dL (3.5-5.0); TOTAL PROTEIN 6.7 g/dL (6.0-8.4)
--- NOTE | 2016-09-13 10:55 | NUR ---
Patient oriented x3, occassional pain "to joints" that he requests Fentanyl. Remains in Afib with HR 80-130s. SBP 90-120s. Remains on room air with lungs clear, diminished in the bases. Voids per urinal, bowel sounds active. AC/HS accuchecks, mild SSI. Cardiac/diabetic diet, is to be NPO after midnight tonight for possible cardioversion. EKG completed to monitor QTC interval for Tikosen dose increase.
--- NOTE | 2016-09-13 12:58 | NUR ---
pPT TRANSFERED FROM ICU TO PCU PER CHAIR. AT TIME OF TRANSFER PT IS A/O PINK WARM AND DRY, STEADY ON FEET, INDEPENDENT IN ROOM. LUNGS CLEAR UPPER AND SLIGHTLY COARSE LOWER DISTINCT HEART TONES, ABDOMEN IS SOFT AND NONTENDER WITH PRESENT BOWEL SOUNDS. PULSES ARE STRONG HE HAS LITTLE EDEMA. VS...98.1 ORAL, 16, 54, 114/70, MEAN IS 84, AND SATS ARE 93 ON RA. STEADY ON FEET WHEN UP IN ROOM. PARAMETERS FOR QT INTERVALS, PT IS ON TIKOSYN. NPO AFTER MIDNIGHT FOR POSSIBLE CARDIVERSION IN AM.
--- NOTE | 2016-09-13 16:24 | NUR ---
Significant Event: PT TRANSFERED FROM ICU THIS AM. NO C/O, PT HAS BEEN PLAESENT AND COOPERATIVE SO FAR. WANTED PAIN MED AT ABOUT 1430, WAS TOLD HE ONLY HAD TYLENOL, SAID "TYLENOL DOESN'T WORK, TOLD THEM THAT LAST NIGHT, GIVES ME A HEADACHE. I'LL NEED SOMETHING STONGER TO TAKE THE EDGE OFF MY JOINT PAINS." TOLD HIM I HAD NOTHING STONGER BUT OFFERED ATIVAN WHICH HE AGREED TO, TO TAKE THE EDGE OFF. GORES TO BR PER SELF, LEAVES URINAL IN BR TO MEASURE. Follow up: MONITOR FOR DT'S.
--- NOTE | 2016-09-14 04:51 | NUR ---
A/O. 15 BEAT V-TACH ASYMTOMATIC. AM LABS DRAWN. UP AD NURA. FENTx1. POSSIBLE D/C
[2016-09-14 04:56] LABS: BASOPHIL # 0.1 K/uL (0.0-0.2); BASOPHIL % 1.1 %; EOSINOPHIL # 0.3 K/uL (0.0-0.5); EOSINOPHIL % 3.1 %; HEMATOCRIT 46.6 % (37.0-53.0); HEMOGLOBIN 16.3 g/dL (12.0-17.0); IMMATURE GRANULOCYTE # 0.1 K/uL (0.0-0.3); IMMATURE GRANULOCYTE % 0.6 %; LYMPHOCYTE # 4.1 K/uL (0.8-4.0); LYMPHOCYTE % 43.6 %; MCV 91.4 fl (83.0-98.0); MONOCYTE # 0.8 K/uL (0.0-1.0); MONOCYTE % 8.5 %; MPV 11.9 fl (9.4-12.4); NEUTROPHIL # (ANC) 4.1 K/uL (1.4-9.0); NEUTROPHIL % 43.1 %; NRBC % 0 /100WBC (0-0.00); PLATELET COUNT 120 K/uL (150-450); RDW-CV 12.3 % (11.9-14.6); WBC 9.4 K/uL (4.0-11.0)
[2016-09-14 05:47] LABS: BLOOD UREA NITROGEN 16 mg/dL (6-24); CALCIUM 8.1 mg/dL (8.5-10.5); CHLORIDE 107 mMol/L (96-110); CO2 26 mMol/L (22-32); CREATININE 0.7 mg/dL (0.6-1.3); ESTIMATED GFR (MDRD EQUATION) > 60; SODIUM 140 mMol/L (135-145)
[2016-09-14] MEDS ORDERED: CARDIZEM CD (T120 MG PO (13:10)
[2016-09-14] MEDS ORDERED: IBUPROFEN800 MG PO (13:12)
--- NOTE | 2016-09-14 13:15 | NUR ---
Patient has signed discharge orders on chart. Will be discharged to home. I faxed an updated list of discharge meds to the medication access program at [facility].
--- NOTE | 2016-09-14 14:13 | NUR ---
PT DISMISSED TO HOME WITH DAUGHTER TO DRIVE. AT TIME OF DC PT IS A/O LYLE WARM AND DRY, UNKEPT AND HAS REFUSED SHOWER SINCE HERE. LUNGS ARE CLEAR AND SLIGHTLY DIMINISHED ABDOMEN IS SOFT AND NONTENDER WITH PRESENT BOWEL SOUNDS. PULSES ARE STRONG HE HAS VERY SLIGHT PEDAL AND ANKLE EDEMA. DC INSTRUCTIONS, MEDICATIONS, MEDICATION INSTRUCTIONS, FOLLOW CARE AND APPOINTMENTS, AND INSTRUCTIONS TO GET BACK AND SEE PAIN MANAGEMENT DR, ALL GIVEN TO PT AND FAMILY. PT VERBALIZES UNDERSTANDING. IV DC'D TO RT HAND CATH INTACT. W\C TO FRONT [employer] DO[employer] FOR DC TO HOME
== END 2016-09-14 13:40 | disposition disaster alternative care site (69) | DRG 309 ==
LOC: GMED 21:17 → GPCU 22:47 → GICU 22:47 → GPCU 09-13 11:24
PROVIDERS: Family Medicine; Internal Medicine; ADMIT Internal Medicine Interventional Cardiology
DX: I47.1 Supraventricular tachycardia (principal); I50.22 Chronic systolic (congestive) heart failure; R57.9 Shock, unspecified; I42.9 Cardiomyopathy, unspecified; D75.1 Secondary polycythemia; I48.91 Unspecified atrial fibrillation; E11.9 Type 2 diabetes mellitus without complications; B19.20 Unspecified viral hepatitis C without hepatic coma; F10.10 Alcohol abuse, uncomplicated; F41.9 Anxiety disorder, unspecified; F43.9 Reaction to severe stress, unspecified; D72.829 Elevated white blood cell count, unspecified; Z91.14 Patient's other noncompliance with medication regimen; Z95.810 Presence of automatic (implantable) cardiac defibrillator; Z98.1 Arthrodesis status; Z98.890 Other specified postprocedural states; Z79.01 Long term (current) use of anticoagulants; Z88.0 Allergy status to penicillin
CPT/HCPCS: J1160; J2060; J3010; J3475; J7030; J7120

== ENCOUNTER → 2016-09-30 | Outpatient (CLI) | payer MEDICARE ==
[~2016-09-30] MED LIST changes: +CARDIZEM CD (T120 MG PO; +IBUPROFEN800 MG PO; +JARDIANCE10 MG PO; +MAG-OX-400(241400 MG PO
[2016-09-30 16:56] LABS: ANION GAP 14.5 (10.0-19.0); BLOOD UREA NITROGEN 24 mg/dL (6-24); CALCIUM 9.5 mg/dL (8.5-10.5); CHLORIDE 102 mMol/L (96-110); CO2 27 mMol/L (22-32); CREATININE 0.9 mg/dL (0.6-1.3); ESTIMATED GFR (MDRD EQUATION) > 60; MAGNESIUM 2.1 mg/dL (1.8-2.6); POTASSIUM 3.5 mMol/L (3.7-5.1); SODIUM 140 mMol/L (135-145)
== END | disposition disaster alternative care site (69) ==
LOC: LNHI 16:37
PROVIDERS: Internal Medicine Cardiovascular Disease
DX: I48.91 Unspecified atrial fibrillation (principal); I50.22 Chronic systolic (congestive) heart failure

== ENCOUNTER → 2016-10-10 | Outpatient (CLI) | payer MEDICARE ==
[2016-10-10 17:04] LABS: ALBUMIN 3.6 gm/dL (3.5-5.0); ALK PHOS 149 IU/L (33-138); ALT 147 IU/L (12-78); ANION GAP 14.1 (10.0-19.0); AST 79 IU/L (10-40); BLOOD UREA NITROGEN 19 mg/dL (6-24); CALCIUM 9.2 mg/dL (8.5-10.5); CHLORIDE 101 mMol/L (96-110); CO2 26 mMol/L (22-32); CREATININE 0.8 mg/dL (0.6-1.3); ESTIMATED GFR (MDRD EQUATION) > 60; POTASSIUM 4.1 mMol/L (3.7-5.1); SODIUM 137 mMol/L (135-145); TOTAL BILIRUBIN 0.8 mg/dL (0.0-1.5)
== END | disposition disaster alternative care site (69) ==
LOC: LNHI 16:43
PROVIDERS: Internal Medicine Cardiovascular Disease
DX: I48.1 Persistent atrial fibrillation (principal); I50.22 Chronic systolic (congestive) heart failure

== ENCOUNTER → 2016-12-16 | Outpatient (CLI) | payer MEDICARE ==
[2016-12-16 12:41] LABS: BASOPHIL # 0.1 K/uL (0.0-0.2); BASOPHIL % 1.1 %; EOSINOPHIL # 0.3 K/uL (0.0-0.5); EOSINOPHIL % 2.1 %; HEMATOCRIT 54.5 % (37.0-53.0); HEMOGLOBIN 19.4 g/dL (12.0-17.0); IMMATURE GRANULOCYTE # 0.1 K/uL (0.0-0.3); IMMATURE GRANULOCYTE % 0.8 %; LYMPHOCYTE # 3.9 K/uL (0.8-4.0); LYMPHOCYTE % 31.7 %; MCH 32.6 pg (27.0-34.0); MCHC 35.6 gm/dL (32.0-36.5); MCV 91.6 fl (83.0-98.0); MONOCYTE # 0.8 K/uL (0.0-1.0); MONOCYTE % 6.6 %; MPV 11.6 fl (9.4-12.4); NEUTROPHIL % 57.7 %; NRBC % 0 /100WBC (0-0.00); RBC 5.95 M/uL (4.00-6.00); RDW-CV 12.3 % (11.9-14.6); WBC 12.2 K/uL (4.0-11.0)
[2016-12-16 12:44] LABS: PLATELET COUNT 171 K/uL (150-450)
[2016-12-16 12:57] LABS: BLOOD UREA NITROGEN 23 mg/dL (6-24); CALCIUM 9.5 mg/dL (8.5-10.5); CHLORIDE 104 mMol/L (96-110); CO2 25 mMol/L (22-32); CREATININE 0.9 mg/dL (0.6-1.3); SODIUM 138 mMol/L (135-145)
== END | disposition disaster alternative care site (69) ==
LOC: LNHI 12:36
PROVIDERS: Internal Medicine Cardiovascular Disease
DX: I50.22 Chronic systolic (congestive) heart failure (principal); E11.9 Type 2 diabetes mellitus without complications